=== PATIENT | female | born 1950 | race Caucasian/White ===

== ENCOUNTER 2016-07-01 22:57 | Emergency (ER) | payer MEDICARE, OTHER ==
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
[2016-07-02 00:37] LABS: BASO % 0.3 % (0-6); EOS % 0.3 % (0-6); HEMATOCRIT 38.5 % (35.0-47.0); HEMOGLOBIN 12.4 gm/dl (11.6-16.0); LYMPH % 44.8 % (16-45); MEAN CELL VOLUME 91.2 fl (81-97); MEAN CORPUSCULAR HEMOGLOBIN 29.4 pg (27-33); MEAN CORPUSCULAR HGB CONC 32.2 g/dl (32-36); MEAN PLATELET VOLUME 10.5 fl (7.4-10.4); MONO % 8.6 % (0-9); PLATELET COUNT 250 K/uL (130-400); RED BLOOD COUNT 4.22 M/uL (3.80-5.40); WHITE BLOOD COUNT W/O DIFF 9.1 K/uL (4.2-12.2)
[2016-07-02 00:43] LABS: ANION GAP 15.1 (7-16); CARBON DIOXIDE 25.9 mmol/L (22-30)
== END 2016-07-02 02:17 | disposition home or self-care (01) ==
LOC: ER 22:57
DX: S46.911A Strain of unspecified muscle, fascia and tendon at shoulder and upper arm level, right arm, initial encounter (principal); S70.01XA Contusion of right hip, initial encounter; R51 Headache; M54.2 Cervicalgia; R20.0 Anesthesia of skin; I10 Essential (primary) hypertension; Z87.891 Personal history of nicotine dependence; E11.9 Type 2 diabetes mellitus without complications; V45 Car occupant injured in collision with railway train or railway vehicle; Y92.410 Unspecified street and highway as the place of occurrence of the external cause
CPT/HCPCS: 70450; 71020; 72125; 73521; 80048; 85025; 99283; 99284

== ENCOUNTER 2016-08-27 22:03 | Emergency (ER) | payer MEDICARE ==
[2016-08-27] MEDS ORDERED: 0.9 % SODIUM CHLORIDE 1,000 ML BAG IV ONE (22:30)
--- NOTE | 2016-08-27 22:39 | Emergency Department Record ---
History of Present Illness - General Chief Complaint: Abdominal Pain Stated Complaint: PAIN ON R SIDE AND BACK Time Seen by Provider: 08/27/16 22:14 Source: Patient Mode of Arrival: Ambulatory Limitations: No limitations - History of Present Illness Initial Comments: 66yo female presents with left upper quadrant pain that started last Monday. The pain is sharp and radiates to the left flank/back. No fevers or chills. No cough. The pain comes and goes for a few seconds to minutes. Non exertional. No changes in urination or bowel movements. No shortness of breath. The pain does not effect her appetite. No diarrhea. No hematuria. She does have a history of diverticula. She states it is tender to touch the left upper quadrant. She saw her chiropractor and also expressed a concern about a rib injury. PCP Dr Acevedo. She has an appointment Monday with her doctor. MD Complaint: Abdominal pain, Flank pain Onset/Timin -: Days(s) Location: LUQ Radiation: Back, Chest, L flank Severity: Moderate Quality: Sharp Consistency: Constant, Getting worse Improves With: Nothing Worsens With: Other (palpation, certain movements or positions.) Associated Symptoms: Denies other symptoms - Related Data Patient : No Home Medications Medication Instructions Recorded Confirmed Last Taken Bimatoprost [Lumigan] 2.5 ml OP DAILY 09/07/14 08/27/16 05/02/16 Cyanocobalamin (Vitamin B-12) 1,000 mcg IJ MONTHLY 09/07/14 08/27/16 Unknown [Vitamin B-12] Desipramine HCl [Norpramin] 50 mg PO QAM 09/07/14 08/27/16 05/02/16 Desipramine HCl [Norpramin] 100 mg PO QPM 09/07/14 08/27/16 05/01/16 Lamotrigine 25 mg PO BID 09/07/14 08/27/16 05/02/16 Lisinopril/Hydrochlorothiazide 1 tab PO DAILY 09/07/14 08/27/16 05/02/16 [Lisinopril-Hctz 10-12.5 mg Tab] Nystatin 1 apply TP TID PRN 09/07/14 08/27/16 05/02/16 Timolol [Betimol] 5 ml OP BID 09/07/14 08/27/16 05/02/16 Verapamil HCl [Verapamil ER] 180 mg PO QHS 09/07/14 08/27/16 05/01/16 Omeprazole 40 mg PO BID cap 10/06/15 08/27/16 05/02/16 Cholecalciferol (Vitamin D3) 10,000 unit PO DAILY tab 11/17/15 08/27/16 [Vitamin D3] Brinzolamide [Azopt] 5 ml OP DAILY 05/02/16 08/27/16 05/02/16 Clonazepam [Clonazepam] 1 mg PO BID PRN 07/01/16 08/27/16 Unknown Allergies Allergy/AdvReac Type Severity Reaction Status Date / Time Sulfa (Sulfonamide Allergy RASH Unverified 07/18/16 10:05 Antibiotics) venlafaxine HCl Allergy ALTERED Unverified 07/18/16 10:05 [From Effexor] MENTAL STATUS Travel Screening - Travel/Exposure Within Last 30 Days Have you traveled within the last 30 days?: No Review of Systems Constitutional: Denies: Chills, Fever, Malaise, Weakness Eyes: Denies: Eye discharge, Eye pain, Photophobia, Vision change ENT: Denies: Congestion, Ear pain, Epistaxis, Throat pain Respiratory: Denies: Cough, Dyspnea, Hemoptysis, Stridor, Wheezes Cardiovascular: Denies: Chest pain, Edema, Palpitations, Syncope Endocrine: Denies: Fatigue Gastrointestinal: Reports: As per HPI, Abdominal pain. Denies: Constipation, Diarrhea, Hematemesis, Hematochezia, Melena, Nausea, Vomiting Genitourinary: Denies: Dysuria, Frequency, Hematuria, Urgency Musculoskeletal: Reports: As per HPI, Back pain, Myalgia. Denies: Arthralgia, Gout, Joint swelling, Neck pain Skin: Reports: Bruising, Change in color, Rash Neurological: Denies: Confusion, Headache Psychiatric: Denies: Anxiety (rough area under her bra where it rubs) Hematological/Lymphatic: Denies: Blood Clots, Easy bleeding, Easy bruising Past Medical History - SOCIAL HISTORY Smoking Status: Former smoker Alcohol Use: None Drug Use: None - RESPIRATORY Hx Respiratory Disorders: No - CARDIOVASCULAR Hx Cardio Disorders: Yes Hx Abnormal EKG: Yes Hx Hypertension: Yes - NEURO Hx Neuro Disorders: Yes Comment:: short trem memory loss, chronic fatigue - GI Hx GI Disorders: Yes Hx Abdominal Pain: Yes Hx Irritable Bowel: Yes Hx Nausea/Vomiting: Yes Comment:: "torturous sigmoid colon" - Hx Genitourinary Disorders: Yes Hx Kidney Stones: Yes Hx UTI: Yes - ENDOCRINE Hx Endocrine Disorders: Yes Hx Diabetes: Yes (Type II) - MUSCULOSKELETAL Hx Musculoskeletal Disorders: Yes Hx Arthritis: Yes Hx Back Injury: Yes - PSYCH Hx Psych Problems: Yes Hx Anxiety: Yes Hx Depression: Yes (recent loss of (one weekago )0) - HEMATOLOGY/ONCOLOGY Hx Hematology/Oncology Disorders: Yes Hx Anemia: Yes (pernicious anemia, b12 q month) Family Medical History Any Significant Family History?: Yes Hx Cancer: Mother Hx Heart Disease: Father Hx Resp Disorders: Mother Physical Exam - General General Appearance: Alert, Oriented x3, Cooperative, No acute distress, Other ( Appears relaxed. No distress) Limitations: No limitations - Head Head exam: Normal inspection - Eye Eye exam: Normal appearance, PERRL. negative: Conjunctival injection, Scleral icterus - ENT ENT exam: Normal exam, Mucous membranes moist Ear exam: Normal external inspection Nasal Exam: Normal inspection Mouth exam: Normal external inspection Teeth exam: Normal inspection Throat exam: Normal inspection - Neck Neck exam: Normal inspection, Full ROM. negative: Tenderness - Respiratory Respiratory exam: Normal lung sounds bilaterally. negative: Accessory muscle use, Chest wall tenderness, Decreased breath sounds, Rales, Respiratory distress , Rhonchi, Stridor, Wheezes - Cardiovascular Cardiovascular Exam: Regular rate, Normal rhythm, Normal heart sounds Peripheral Pulses: 2+: Radial (R), Radial (L) - GI/Abdominal GI/Abdominal exam: Soft, Normal bowel sounds, Tenderness (She is tender in the left upper quadrant that is reproducible, soft abdomen, no rash, ). negative: Diminished bowel sounds, Distended, Guarding, Hernia, Rebound, Rigid - Rectal Rectal exam: Deferred - exam: Deferred - Extremities Extremities exam: Normal inspection, Full ROM, Normal capillary refill. negative: Pedal edema, Tenderness Image of Full Body: 1 - tender in the LUQ, soft abdomen without mass, no rebound or guarding 2 - mild tenderness left CVA area, no rash - Back Back exam: Reports: Normal inspection, CVA tenderness (L), Full ROM, Muscle spasm, Paraspinal tenderness. Denies: CVA tenderness (R), Rash noted, Tenderness, Vertebral tenderness - Neurological Neurological exam: Alert, Normal gait, Oriented X3, Reflexes normal - Psychiatric Psychiatric exam: Normal affect, Normal mood - Skin Skin exam: Rash (rough erythematous area appears calloused under the bra where it rubs, no vesicular.). negative: Abrasion, Cyanosis Course Vital Signs 08/27/16 22:14 Temperature 97.8 F Pulse Rate 103 H Respiratory 20 Rate Blood Pressure 153/97 Pulse Ox 99 - Reevaluation(s) Reevaluation #1: EKG 22:35 NSR rate is 94, intervals Qtc 493, [place] is left, ST no acute changes. 08/27/16 22:46 No changes on the EKG from 05/02/16 The patient has a fruit allergy. The oral contrast has trace fruit so it will be held as a caution. 08/27/16 22:47 Reevaluation #2: No acute changes on the CBC or UA. 08/27/16 23:08 Reevaluation #3: The CT scan of the abdomen and pelvis is negative for any acute process. The tenderness is mild and still very reproducible with palpation of the LUQ but the abdomen is very soft and benign on examination She has follow up Monday with her PCP No acute lab or EKG changes. We discussed the small rash under her bra and recommended return if it spreads which may indicate shingles. I do not see any convincing vesicle to suggest shingles at this time. 08/28/16 00:59 Medical Decision Making - Lab Data Result diagrams: 08/27/16 22:50 08/27/16 22:50 Disposition Disposition: Discharge Clinical Impression: Left upper quadrant pain Disposition: Home, Self-Care Condition: (1) Good Instructions: Abdominal Pain (ED) Additional Instructions: follow up with Dr Acevedo on Monday as scheduled return if you have any new symptoms or concerns return if you develop a rash over the area of pain you may take Tylenol or Motrin for mild pain as directed Forms: Patient Portal Access Time of Disposition: 01:03
[2016-08-27 22:45] LABS: URINE APPEARANCE CLEAR; URINE BILIRUBIN NEGATIVE (NEGATIVE); URINE BLOOD NEGATIVE (NEGATIVE); URINE COLOR YELLOW; URINE GLUCOSE (UA) NEGATIVE (NEGATIVE); URINE KETONE NEGATIVE (NEGATIVE); URINE LEUKOCYTE ESTERASE NEGATIVE (NEGATIVE); URINE NITRITE NEGATIVE (NEGATIVE); URINE PROTEIN NEGATIVE (NEGATIVE); URINE UROBILINOGEN 0.2 E.U./dL (0.20 - 1.00)
[2016-08-27 23:02] LABS: HEMATOCRIT 38.9 % (35.0-47.0); HEMOGLOBIN 12.4 gm/dl (11.6-16.0); MEAN CORPUSCULAR HEMOGLOBIN 28.7 pg (27-33); MEAN CORPUSCULAR HGB CONC 31.9 g/dl (32-36); MEAN PLATELET VOLUME 11.2 fl (7.4-10.4); PLATELET COUNT 228 K/uL (130-400); RED BLOOD COUNT 4.32 M/uL (3.80-5.40); RED CELL DISTRIBUTION WIDTH 14.3 % (11.5-14.5); WHITE BLOOD COUNT W/O DIFF 7.4 K/uL (4.2-12.2)
[2016-08-27 23:21] LABS: ALB/GLOB RATIO 1.7 (1.1-1.8); ALBUMIN 4.7 gm/dL (3.5-5.0); ALKALINE PHOSPHATASE 117 U/L (38-126); ALT/SGPT 46 U/L (9-52); ANION GAP 14.4 (7-16); AST/SGOT 58 U/L (14-36); BILIRUBIN,TOTAL 0.32 mg/dL (0.2-1.3); BLOOD UREA NITROGEN 17 mg/dL (7-17); CARBON DIOXIDE 27.6 mmol/L (22-30); CREATININE 0.8 mg/dL (0.52-1.04); EST GLOMERULAR FILTRATION RATE > 60 ml/min; GLUCOSE,RANDOM 112 mg/dL (70-110); LIPASE 114 U/L (23-300); TOTAL PROTEIN 7.5 gm/dL (6.3-8.2)
[2016-08-28] MEDS ORDERED: ACETAMINOPHEN 1,000 MG in SODIUM CHLORIDE 1 BAG IVPB ONE (01:19)
== END 2016-08-28 01:27 | disposition home or self-care (01) ==
LOC: ER 22:03
DX: R10.12 Left upper quadrant pain (principal); R07.9 Chest pain, unspecified; R21 Rash and other nonspecific skin eruption; I10 Essential (primary) hypertension; E11.9 Type 2 diabetes mellitus without complications; Z87.891 Personal history of nicotine dependence
CPT/HCPCS: 99284 ×2; 96374; 83690; 80053; 81003; 85027; 74177; 93005; 93010; Q9967; J7030

== ENCOUNTER 2016-10-27 09:26 | Day surgery (SDC) | payer MEDICARE ==
[2016-10-27] MEDS ORDERED: MIDAZOLAM HCL 2MG/2ML VIAL IV ONE (14:00)
[2016-10-27] MEDS ORDERED: PROPOFOL 10 MG/ML VIAL IV ONE (14:00)
[2016-10-27] MEDS ORDERED: LIDOCAINE 2% MDV (20MG/ML) 20ML VIAL IV ONE (14:00)
--- NOTE | 2016-11-01 09:49 | Operative Note ---
DATE OF SURGERY: 10/27/2016 REERRING: Memo Palmer M.D. PROCEDURE: COLONOSCOPY. PREOPERATIVE DIAGNOSIS: Personal history of polyps. POSTOPERATIVE DIAGNOSIS: Normal exam, fair prep, and mildly to moderately tortuous sigmoid colon. PROCEDURE: After informed consent was obtained from the patient, she was placed in the left lateral decubitus position in the endoscopy suite, sedated, and monitored by Department of Anesthesia. Digital rectal exam was unremarkable. A well-lubricated [id number] gastroscope was placed in the rectum, advanced through a somewhat tortuous sigmoid colon to the descending colon, transverse colon, ascending colon, and to the cecum. Given the patient's history of prior tortuosity, it was felt the gastroscope would be most suitable, which, in fact, it was. In any event, the preparation quality was fair. Numerous areas were rinsed and fluid and stool removed. The cecum, ileocecal valve, appendiceal orifice, ascending colon, transverse colon, descending colon, sigmoid colon, and the rectum were carefully inspected. Numerous areas were lavaged for the fair prep. No abnormalities were otherwise noted. J-turn views in the anorectum were unremarkable. The endoscope was straightened, the rectal ampulla deflated, and the endoscope was removed. RECOMMENDATIONS: I suggested the patient resume her medications and diet. I have suggested repeat colonoscopy in 3 years, based on the prep quality. As always, thank you for allowing me to participate in the care of your patient. CC: Memo Palmer M.D. [id number]
== END 2016-10-27 11:22 | disposition home or self-care (01) ==
LOC: HOP 09:26
PROVIDERS: ATTEND Internal Medicine Gastroenterology
DX: Z12.11 Encounter for screening for malignant neoplasm of colon (principal); D12.4 Benign neoplasm of descending colon; I10 Essential (primary) hypertension; E11.9 Type 2 diabetes mellitus without complications; Z79.4 Long term (current) use of insulin; Z79.84 Long term (current) use of oral hypoglycemic drugs; E78.00 Pure hypercholesterolemia, unspecified; E03.9 Hypothyroidism, unspecified; K57.30 Diverticulosis of large intestine without perforation or abscess without bleeding